=== PATIENT | female | born 1975 | race Caucasian/White ===

== ENCOUNTER → 2016-11-23 08:50 | Outpatient (CLI) | payer MEDICAID ==
--- NOTE | ~2016-11-23 | EMG ---
PATIENT:JUSTYN GUADALUPE DATE OF SERVICE: 11/23/16 MEDICAL RECORD: [id number] DATE OF : 75 LOCATION: [facility] ADMISSION DATE: REFERRING PHYSICIAN: LEO HIDALGO DO INTERPRETING PHYSICIAN: ISAAC CM MD DATE OF SERVICE: 11/23/2016 Electromyographic Report Referred as an outpatient by Dr. Hidalgo. ELECTROMYOGRAPHIC DATA: Electromyographic examination is limited to both upper extremities. In the right upper extremity, right median motor stimulation elicits a compound motor action potential with a distal latency of 6.3 milliseconds, peak amplitude of 4 millivolts, and calculated conduction velocity of 47 meters per second. Right ulnar motor stimulation elicits a compound motor action potential with a distal latency of 3.0 milliseconds, peak amplitude of 9 millivolts, and calculated conduction velocity of 58 meters per second. Right ulnar motor stimulation across the elbow fails to elicit evidence of conduction block at this level. Antidromic right median sensory stimulation elicits a response with a distal latency of 7.1 milliseconds, amplitude of 6 microvolts and calculated conduction velocity of 45 meters per second. Antidromic right ulnar sensory stimulation elicits a response with a distal latency of 3.4 milliseconds, amplitude of 7 microvolts and calculated conduction velocity of 75 meters per second. The right median F wave has a latency of 34 milliseconds. In the left upper extremity, left median motor stimulation elicits a compound motor action potential with a distal latency of 7.4 milliseconds, peak amplitude of 7 millivolts, and calculated conduction velocity of 80 meters per second. Left ulnar motor stimulation elicits a compound motor action potential with a distal latency of 2.9 milliseconds, peak amplitude of 7 millivolts, and calculated conduction velocity of 60 meters per second. Left ulnar motor stimulation across the elbow fails to elicit evidence of conduction block at this level. Antidromic left median sensory stimulation elicits a response with a distal latency of 8.1 milliseconds, amplitude of 5 microvolts and calculated conduction velocity of 59 meters per second. Antidromic left ulnar sensory stimulation elicits a response with a distal latency of 3.4 milliseconds, amplitude of 10 microvolts and calculated conduction velocity of 72 meters per second. The left median F wave has a latency of 33 milliseconds. Needle electrode examination is limited to both upper extremities as well. Muscles interrogated include the abductor pollicis brevis, first dorsal interosseous, abductor digiti minimi, pronator teres, biceps brachii, triceps and deltoid. There is no abnormality of insertional activity and no abnormal spontaneous activity is seen in all muscles interrogated. Motor unit potential morphology and the pattern of motor unit potential firing and recruitment is normal in all muscles sampled. 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 There is no electrical evidence ELECTROMYGRAM/NERVE CONDUCTION [id number] JUSTYN GUADALUPE of a superimposed cervical radiculopathy or other lesion of the lower motor neuron in the upper extremities at this time. There is no evidence of active denervation. TRANSINT:[id number] Voice Confirmation ID: [id number] DOCUMENT ID: [id number] ISAAC CM MD CC: [id number] DICTATION DATE: 11/23/1649 LITIGATOR: 11/24/16 09 DEP CLI 11/23/16 [id number] [place] [id number]
== END | disposition home or self-care (01) ==
LOC: D.CN 06-21 09:00 → D.MAMMO 08-02 10:00 → D.CN 10-08 08:30 → D.MAMMO 10-08 09:45 → D.CN 10-26 08:30
DX: R29.898 Other symptoms and signs involving the musculoskeletal system (principal)